=== PATIENT | female | born 1935 | race African-American/Black ===

== ENCOUNTER 2019-01-23 14:00 | Emergency (ER) | payer OTHER ==
[~2019-01-23] VITALS: Ht 175.3 cm; Wt 67.0 kg
[~2019-01-23 14:00] MED LIST: ASPI-518 PO; CALC0.253 PO; CLONIDINE; FURO40TA5 PO; GLIP10TA10 PO; HYDR25TA PO; INSULIN; LEVO25TA7 PO; LISI-186 PO; METO-385 PO; SIMV80TA90 PO; SPIR25TA6 PO; TERA1CAP7 PO; [UNRECOGNIZED DRUG - CODE] IJ
[2019-01-23 15:00] LABS: BASOPHILS % 1.5 % (0.0-2.0); EOSINOPHILS % 1.3 % (0.0-5.0); HEMOGLOBIN. 9.4 g/dL (12.0-16.0); LYMPHOCYTES % 24.1 % (20.0-50.0); MEAN CORPUSCULAR HEMOGLOBIN 27.3 pg (28.0-32.0); MEAN CORPUSCULAR VOLUME 86.7 fL (81.0-99.0); MEAN PLATELET VOLUME 6.9 fl (7.4-10.4); MONOCYTES % 8.7 % (2.0-8.0); NEUTROPHILS % 64.4 % (40.0-76.0); PLATELET 338 x1000/uL (130-400); RED BLOOD CELL COUNT 3.47 mill/uL (4.2-5.4); RED CELL DISTRIBUTION WIDTH 16.1 % (11.6-14.6)
[2019-01-23 15:07] LABS: CHLORIDE 108 mEq/L (98-107)
[2019-01-23 15:11] LABS: ETHANOL BLOOD < 10 mg/dL
[2019-01-23 15:14] LABS: LDL CHOLESTEROL 74 mg/dL (5-100)
[2019-01-23 15:16] LABS: PROTHROMBIN TIME 10.6 sec (9.6-11.0)
[2019-01-23] MEDS ORDERED: LORAZEPAM 2MG/ML CPJ ONE ×2 (15:40→15:46)
[2019-01-23] MEDS ORDERED: LEVETIRACETAM 1,000 MG in SODIUM CHLORIDE 0.9% 100 ML IV ONE (16:00)
[2019-01-23] MEDS ORDERED: ENOXAPARIN 40MG/0.4ML SYR SUBCUT SCH (17:15)
[2019-01-23] MEDS ORDERED: ACETAMINOPHEN 325MG TABLET PO PRN (17:15)
[2019-01-23] MEDS ORDERED: HYDROCODONE/ACETAMINOPHEN 5/325MG TABLET PO PRN (17:15)
[2019-01-23] MEDS ORDERED: MORPHINE SULFATE 2 MG/ML CPJ (NOT FOR IM USE) IV PRN (17:15)
[2019-01-23] MEDS ORDERED: LORAZEPAM 2MG/ML CPJ IV PRN (17:15)
[2019-01-23 17:25] VITALS: BP 149/69
== END 2019-01-23 18:55 | disposition short-term general hospital (02) ==
LOC: ER 14:00 → EDBEDREQ 15:58 → EDBEDREQTM 15:59 → CANBEDREQ 18:05 → ER 18:55
DX: G40.109 Localization-related (focal) (partial) symptomatic epilepsy and epileptic syndromes with simple partial seizures, not intractable, without status epilepticus (principal); E11.65 Type 2 diabetes mellitus with hyperglycemia; I10 Essential (primary) hypertension; M25.60 Stiffness of unspecified joint, not elsewhere classified; Z79.4 Long term (current) use of insulin; Z86.73 Personal history of transient ischemic attack (TIA), and cerebral infarction without residual deficits
CPT/HCPCS: 36415; 70450; 71045; 80053; 80320; 82962; 83721; 84484; 85025; 85610; 93005; 96365; 99291; J1953; J2060; J7050; G0480

== ENCOUNTER 2019-02-12 12:25 | Emergency (ER) | payer OTHER ==
[~2019-02-12] VITALS: Ht 157.5 cm; Wt 58.0 kg
[2019-02-12] MEDS ORDERED: SODIUM CHLORIDE 0.9% 1,000 ML IV ONE (13:02)
[2019-02-12] MEDS ORDERED: HALOPERIDOL LACTATE 5MG/ML VIAL IM ONE (13:45)
[2019-02-12 15:17] LABS: BASOPHILS % 2.6 % (0.0-2.0); EOSINOPHILS % 2.1 % (0.0-5.0); HEMATOCRIT. 31.6 % (36.0-48.0); HEMOGLOBIN. 9.9 g/dL (12.0-16.0); LYMPHOCYTES % 25.5 % (20.0-50.0); MEAN CORPUSCULAR HEMOGLOBIN 27.6 pg (28.0-32.0); MEAN PLATELET VOLUME 7.4 fl (7.4-10.4); MONOCYTES % 6.2 % (2.0-8.0); NEUTROPHILS % 63.6 % (40.0-76.0); PLATELET 265 x1000/uL (130-400); RED BLOOD CELL COUNT 3.59 mill/uL (4.2-5.4)
[2019-02-12 15:25] LABS: CHLORIDE 106 mEq/L (98-107)
[2019-02-12 15:31] LABS: PROTHROMBIN TIME 10.4 sec (9.6-11.0)
[2019-02-12 21:42] LABS: CLARITY URINE CLEAR (CLEAR); COLOR URINE YELLOW (YELLOW); KETONES URINE TRACE (NEGATIVE); LEUKOCYTE ESTERASE URINE NEGATIVE (NEGATIVE); NITRITE URINE NEGATIVE (NEGATIVE); OCCULT BLOOD URINE NEGATIVE (NEGATIVE); PROTEIN URINE 3+ (NEGATIVE); SPECIFIC GRAVITY URINE 1.014 (1.005-1.030); UROBILINOGEN URINE 0.2 E.U./dL (0.2-1.0)
[2019-02-13 00:20] VITALS: BP 159/55
== END 2019-02-13 01:42 | disposition home or self-care (01) ==
LOC: ER 12:25 → CANBEDREQ 02-13 03:05
DX: R89.2 Abnormal level of other drugs, medicaments and biological substances in specimens from other organs, systems and tissues (principal); G93.49 Other encephalopathy; E11.9 Type 2 diabetes mellitus without complications; I10 Essential (primary) hypertension; R45.1 Restlessness and agitation; J98.11 Atelectasis; F03.90 Unspecified dementia, unspecified severity, without behavioral disturbance, psychotic disturbance, mood disturbance, and anxiety; Z86.73 Personal history of transient ischemic attack (TIA), and cerebral infarction without residual deficits
CPT/HCPCS: 36415; 70450; 71045; 80053; 80185; 81003; 82962; 84484; 85025; 85610; 93005; 96360; 96372; 99284; J1630; J7030